=== PATIENT | female | born 1960 | race Hispanic/Latino ===

== ENCOUNTER → 2024-08-14 | Outpatient (REF) | payer OTHER | LOC: RAD 10:34 | PROVIDERS: ATTEND Family Medicine | DX: M25.562 Pain in left knee (principal) ==

== ENCOUNTER → 2025-01-08 | Outpatient (REF) | payer OTHER | LOC: US 10:59 | PROVIDERS: ATTEND Family Medicine | DX: R10.31 Right lower quadrant pain (principal); M25.551 Pain in right hip | CPT/HCPCS: 76700 ==